=== PATIENT | female | born 2000 | race Native Hawaiian/Other Pacific Islander ===

== ENCOUNTER 2023-10-10 09:18 | Inpatient (IN) | payer SELFPAY ==
[2023-10-10] VITALS (30 sets, daily range): BP systolic 99–129; BP diastolic 55–79
[~2023-10-10] VITALS: Ht 149.9 cm; Wt 69.2 kg
[2023-10-10] MEDS ORDERED: AMPICILLIN (IV) 2,000 MG in NS (IVPB) 50 ML 50 ML IV SCH (09:29)
[2023-10-10] MEDS ORDERED: LACTATED RINGERS 1,000 ML 500 ML IV PRN (09:30)
[2023-10-10] MEDS ORDERED: D5 LR 1,000 ML IV SOLN 1,000 ML IV SCH (09:30)
[2023-10-10] MEDS ORDERED: MINERAL OIL 30 ML UDC TOP PRN (09:30)
[2023-10-10] MEDS ORDERED: LIDOCAINE 2% w/EPI 1:200,000 20 ML VIAL INJ PRN (09:30)
[2023-10-10 10:11] LABS: BASOPHILS # (AUTO) 0.1 10^3/uL (0.0-0.1); BASOPHILS % (AUTO) 1 % (0-10); EOSINOPHILS # (AUTO) 0.9 10^3/uL (0.0-0.3); EOSINOPHILS % (AUTO) 7 % (0-10); HEMATOCRIT 31 % (35-52); HEMOGLOBIN 9.2 g/dL (11.5-16.0); LYMPHOCYTES # (AUTO) 3.2 10^3/uL (1.0-4.0); LYMPHOCYTES % (AUTO) 25 % (12-44); MEAN CORPUSCULAR HEMOGLOBIN 22 pg (25-34); MEAN CORPUSCULAR HGB CONC 30 g/dL (32-36); MEAN CORPUSCULAR VOLUME 74 fL (80-99); MEAN PLATELET VOLUME 9.9 fL (9.0-12.2); MONOCYTES # (AUTO) 0.8 10^3/uL (0.0-1.0); MONOCYTES % (AUTO) 6 % (0-12); NEUTROPHILS # (AUTO) 7.8 10^3/uL (1.8-7.8); NEUTROPHILS % (AUTO) 61 % (42-75); PLATELET COUNT 353 10^3/uL (130-400); WHITE BLOOD COUNT 12.8 10^3/uL (4.3-11.0)
[2023-10-10] MEDS ORDERED: MV-M1TAB66 PO (10:15)
[2023-10-10] MEDS: OXYTOCIN DRIP PRE-MIX 500 ML IV SCH ×2 (11:15→17:06)
[2023-10-10] MEDS ORDERED: AMPICILLIN (IV) 1,000 MG in NS (IVPB) 50 ML 50 ML IV SCH (13:30)
[2023-10-10] MEDS ORDERED: CATHETER FLUSH 10 ML SYR IV SCH ×2 (14:00→22:00)
--- NOTE | 2023-10-10 14:09 | History & Physical-OB ---
OB - Chief Complaint & HPI Date/Time Date of Admission: Date of Admission: Oct 10, 2023 at 09:18 Date seen by a Provider: Oct 10, 2023 Time Seen by a Provider: 13:45 Chief Complaint/History OB-Reason for Admission/Chief: Induction of Labor Hx : 3 Hx Para: 2 Expected Date of Delivery: Oct 07, 2023 Gestational Age in Weeks: 40 Gestational Age in Days: 3 Other reason for admission: Elective IOL History of Labs A+, Ab neg, Rub Imm HIV/RPR/HepB/C NR Normal 1 hr GTT GBS + Allergies and Home Medications Allergies Coded Allergies: No Known Drug Allergies (Unverified , 10/10/23) Patient Home Medication List Home Medication List Reviewed: Yes Mv-Mn/Iron/FA/Herbal/Digestive ( One Tablet) 27 Mg Iron-360 Mcg-125 Mg- 32 Mg Tablet, 1 EACH PO DAILY, (Reported) Entered as Reported by: MARIA ELENA COLLINS on 10/10/23 1015 Last Action: New Order OB - History Hx of Present Care: Yes Ultrasounds: Normal mid trimester US Obstetrical Complications: None Medical Complications: None Obstetrical History Hx : 3 Hx Para: 2 Hx # Term Pregnancies: 2 Number of Living Children: 2 Patient Past Medical History N/A Social History/Family History Alcohol Use: Denies Use Recreational Drug Use: No Smoking Cessation: Never smoker Immunizations Influenza Vaccine Up-to-Date: No; Not Current Tetanus Booster (TDap): Less than 5yrs Rubella: immune RPR/VDRL: Negative GBS Status: Positive HBsAG: Negative OB - Admission Exam Physical Exam Vitals: Vital Signs 10/10/23 10/10/23 10/10/23 10:17 13:18 13:47 Temp 37.1 Pulse 77 Resp 18 B/P (MAP) 99/57 (71) Pulse Ox 99 O2 Delivery Room Air HEENT: NCAT Heart: Rhythm Normal Lungs: Clear Abdomen: Gravid Cervical Dilatation: 5cm Effacement: 75% Station: -1 Membranes: Intact Heart Rate: 140's Accelerations: Accelerations Present Decelerations: No Decelerations Short Term Variability: Present Mcc Variability: Average (6-25) Contractions on Admission: < 5 Minutes Apart Intensity: Moderate Myers Scoring Tool (Modified) Dilation (cm): 3-4cm (2) Effacement (%): 51-79% (2) Descent/Station: -1,0 (2) Cervix Consistency: Medium(1) Add 1 point for: Each previous vaginal delivery (1) Myers Score: 9 Labs Laboratory Tests Test 10/10/23 09:46 Range/Units White Blood Count 12.8 H 4.3-11.0 10^3/uL Red Blood Count 4.16 3.80-5.11 10^6/uL Hemoglobin 9.2 L 11.5-16.0 g/dL Hematocrit 31 L 35-52 % Mean Corpuscular Volume 74 L 80-99 fL Mean Corpuscular Hemoglobin 22 L 25-34 pg Mean Corpuscular Hemoglobin Concent 30 L 32-36 g/dL Red Cell Distribution Width 15.5 H 10.0-14.5 % Platelet Count 353 130-400 10^3/uL Mean Platelet Volume 9.9 9.0-12.2 fL Immature Granulocyte % (Auto) 1 % Neutrophils (%) (Auto) 61 42-75 % Lymphocytes (%) (Auto) 25 12-44 % Monocytes (%) (Auto) 6 0-12 % Eosinophils (%) (Auto) 7 0-10 % Basophils (%) (Auto) 1 0-10 % Neutrophils # (Auto) 7.8 1.8-7.8 10^3/uL Lymphocytes # (Auto) 3.2 1.0-4.0 10^3/uL Monocytes # (Auto) 0.8 0.0-1.0 10^3/uL Eosinophils # (Auto) 0.9 H 0.0-0.3 10^3/uL Basophils # (Auto) 0.1 0.0-0.1 10^3/uL Immature Granulocyte # (Auto) 0.1 0.0-0.1 10^3/uL Syphilis Total Antibody Negative Negative OB - Assessment/Plan/Diagnosis Assessment Assessment: group B positive strep, induction of labor Admission Dx Third Trimester 40 weeks gestation GBS + Admission Status: Inpatient Order (span 2 midnights) Reason for Inpatient Admission: Labor and post care Plan Other Plan 22 yo @ 40.3 wga here for elective IOL Plan - GBS pos: Started ampicillin prior to IOL - Pitocin Protocol after 2 hrs of antibiotics - Expectant management ESDRAS LAMBERT MD Oct 10, 2023 14:09
[2023-10-10 14:52] LABS: BILIRUBIN,URINE NEGATIVE (NEGATIVE); CLARITY,URINE SL CLOUDY; COLOR,URINE YELLOW; GLUCOSE, URINE (UA) NEGATIVE (NEGATIVE); KETONES,URINE NEGATIVE (NEGATIVE); LEUKOCYTE ESTERASE ,URINE 3+ (NEGATIVE); NITRITE,URINE NEGATIVE (NEGATIVE); PROTEIN,URINE NEGATIVE (NEGATIVE); RBC,URINE 0-2 /HPF
[2023-10-10 14:53] LABS: BACTERIA,URINE MODERATE /HPF
--- NOTE | 2023-10-10 17:04 | OB Labor & Delivery Record ---
Vag Delivery Note Vag Delivery Note Date of Delivery: 10/10/23 Preoperative Diagnosis: Joanna Soler is a (22 /Para 3 / 2,Gestational Age (wks)40.3 wga here for elective IOL Postoperative Diagnosis: Same Attending Surgeon/Physician: Esdras Lino MD Diamond Powder Mixer: None Anesthesia: Natural Delivery Type: @ 7336 Findings: Viable male , apgars 7/9, weight 7#8 Lacerations: 2nd degree laceration Intact placenta with 3 vessel cord. No nuchal cord, body cord or shoulder dystocia Estimated Blood Loss: 125 ml Complications: None Condition: Stable Description of Procedure: The patient is a 22 year old female who presented for elective IOL at term. She was admitted and informed consent was obtained. Her labor course was remarkable for pitocin augmentation. She progressed to complete dilatation and began to push. She was then set up for delivery. The infant's head was delivered atraumatically in the TONEY position. The shoulders and remainder of the 's body were then delivered without difficulty. Upon delivery, the infant was vigorous and placed on maternal chest and the mouth and nares were bulb suctioned. After a 2 min delay cord was doubly clamped and cut by FOB and the infant remained on maternal chest. An intact placenta with 3-vessel cord delivered via [place] and there was found to be minimal bleeding.~ Vigorous fundal massage was performed and the fundus was found to be firm. IV oxytocin was given. Examination of the vagina and perineum revealed a 2nd degree perineal laceration repaired in the usual fashion with 3-0 vicryl rapide suture. Following the repair, sponge, instrument and needle counts were correct. Mom and baby were both in stable condition in the labor suite. Vitals - Labs Vital Signs - I&O Vital Signs Date Time Temp Pulse Resp B/P (MAP) Pulse Ox O2 Delivery O2 Flow Rate FiO2 10/10/23 15:17 37.1 92 18 124/72 (89) Room Air 10/10/23 15:03 86 18 121/71 (88) Room Air 10/10/23 14:48 86 18 113/69 (84) Room Air 10/10/23 14:33 94 18 112/70 (84) Room Air 10/10/23 14:19 73 18 107/62 (77) Room Air 10/10/23 14:10 37.4 10/10/23 14:02 72 18 106/60 (75) Room Air 10/10/23 13:47 77 18 99/57 (71) Room Air 10/10/23 13:33 74 18 102/55 (71) Room Air 10/10/23 13:18 37.1 93 18 117/74 (88) Room Air 10/10/23 13:04 73 18 113/68 (83) Room Air 10/10/23 12:49 77 18 119/72 (88) Room Air 10/10/23 12:33 83 18 121/72 (88) Room Air 10/10/23 12:18 78 18 114/67 (83) Room Air 10/10/23 12:03 37.3 101 18 113/69 (84) Room Air 10/10/23 11:48 76 18 109/64 (79) Room Air 10/10/23 11:34 78 18 107/55 (72) Room Air 10/10/23 11:18 74 18 111/63 (79) Room Air 10/10/23 10:17 37.1 107 18 99 Room Air Labs Laboratory Tests 10/10/23 09:35: Urine Color YELLOW, Urine Clarity SL CLOUDY, Urine pH 6.0, Urine Specific [place] 1.010L, Urine Protein NEGATIVE, Urine Glucose (UA) NEGATIVE, Urine Ketones NEGATIVE, Urine Nitrite NEGATIVE, Urine Bilirubin NEGATIVE, Urine Urobilinogen 0.2, Urine Leukocyte Esterase 3+H, Urine RBC (Auto) TRACEH, Urine RBC 0-2, Urine WBC 10-25H, Urine Squamous Epithelial Cells 5-10, Urine Crystals NONE, Urine Bacteria MODERATEH, Urine Casts NONE, Urine Mucus NEGATIVE, Urine Culture Indicated YES 10/10/23 09:46: White Blood Count 12.8H, Red Blood Count 4.16, Hemoglobin 9.2L, Hematocrit 31L, Mean Corpuscular Volume 74L, Mean Corpuscular Hemoglobin 22L, Mean Corpuscular Hemoglobin Concent 30L, Red Cell Distribution Width 15.5H, Platelet Count 353, Mean Platelet Volume 9.9, Immature Granulocyte % (Auto) 1, Neutrophils (%) (Auto) 61, Lymphocytes (%) (Auto) 25, Monocytes (%) (Auto) 6, Eosinophils (%) (Auto) 7, Basophils (%) (Auto) 1, Neutrophils # (Auto) 7.8, Lymphocytes # (Auto) 3.2, Monocytes # (Auto) 0.8, Eosinophils # (Auto) 0.9H, Basophils # (Auto) 0.1, Immature Granulocyte # (Auto) 0.1, Syphilis Total Antibody Negative ESDRAS LINO MD Oct 10, 2023 17:04
[2023-10-10] MEDS ORDERED: BENZOCAINE/MENTHOL (DERMOPLAST) 56 ML CAN TP PRN (17:15)
[2023-10-10] MEDS ORDERED: WITCH HAZEL(TUCKS) 40 EA JAR TOP PRN (17:15)
[2023-10-10] MEDS ORDERED: OXYTOCIN DRIP PRE-MIX 500 ML IV SCH (17:15)
[2023-10-10] MEDS: ACETAMINOPHEN 500 MG TABLET PO SCH (18:27)
[2023-10-10] MEDS: IBUPROFEN 600 MG TABLET PO SCH (18:27)
[2023-10-10] MEDS: DOCUSATE SODIUM 100 MG CAPSULE PO SCH (21:12)
[2023-10-11] MEDS: ACETAMINOPHEN 500 MG TABLET PO SCH ×3 (00:36→11:18)
[2023-10-11] MEDS: IBUPROFEN 600 MG TABLET PO SCH ×3 (00:36→13:55)
[2023-10-11 02:41] VITALS: BP 104/63
[2023-10-11 05:45] LABS: BASOPHILS # (AUTO) 0.1 10^3/uL (0.0-0.1); BASOPHILS % (AUTO) 0 % (0-10); EOSINOPHILS # (AUTO) 0.5 10^3/uL (0.0-0.3); EOSINOPHILS % (AUTO) 3 % (0-10); HEMATOCRIT 28 % (35-52); HEMOGLOBIN 8.4 g/dL (11.5-16.0); LYMPHOCYTES # (AUTO) 3.3 10^3/uL (1.0-4.0); LYMPHOCYTES % (AUTO) 21 % (12-44); MEAN CORPUSCULAR HEMOGLOBIN 22 pg (25-34); MEAN CORPUSCULAR HGB CONC 30 g/dL (32-36); MEAN CORPUSCULAR VOLUME 74 fL (80-99); MONOCYTES # (AUTO) 0.8 10^3/uL (0.0-1.0); MONOCYTES % (AUTO) 5 % (0-12); NEUTROPHILS # (AUTO) 11.3 10^3/uL (1.8-7.8); NEUTROPHILS % (AUTO) 70 % (42-75); PLATELET COUNT 298 10^3/uL (130-400)
[2023-10-11 06:08] VITALS: BP 121/60
[2023-10-11 08:00] VITALS: BP 92/52
[2023-10-11] MEDS: DOCUSATE SODIUM 100 MG CAPSULE PO SCH (08:27)
[2023-10-11] MEDS ORDERED: FERROUS SULFATE 325 MG (IRON) TABLET PO SCH (09:00)
[2023-10-11] MEDS ORDERED: FERR325T24 PO (10:25)
--- NOTE | 2023-10-11 10:26 | Discharge Inst-Women's Service ---
Discharge Inst-Women's Serv Depart Medication/Instructions New, Converted or Re-Newed RX: Transmitted to Pharmacy ([facility]) Problems Reviewed?: Yes Consults/Follow Up Additional Follow Up: Yes (Dr. Lino in 6 weeks) Activity Driving Instructions: No Driving for 1 Week Diet Discharge Diet: Regular Diet Return to The Hospital For: As below Symptoms to Report to : Bleeding Excessive, Fever Over 101 Degrees F, Vaginal Discharge Foul For Any Problems or Questions: Contact Your Physician WIN MARTIN MD Oct 11, 2023 10:26
--- NOTE | 2023-10-11 10:29 | Discharge Summary ---
Diagnosis/Chief Complaint Date of Admission Oct 10, 2023 at 09:18 Date of Discharge October 11, 2023 Admission Diagnosis Admission Diagnosis 1. Intrauterine at term 40 weeks 2. Anemia iron deficiency Discharge Diagnosis 1. Intrauterine at term 40 weeks 2. Anemia iron deficiency Chief Complaint/HPI Chief Complaint/HPI 22-year-old 3 now term 3 who initially presented for induction of labor during the morning of October 10, 2023. Her GBS status was noted to be neg ative. Her care was essentially unremarkable through [facility]. Discharge Summary-OBS Procedures 1. Spontaneous vaginal deliveryDr. Lino 2. Repair of second-degree perineal laceration Discharge Physical Examination Allergies: Coded Allergies: No Known Drug Allergies (Unverified , 10/10/23) Vitals & I&Os Intake and Output 10/10/23 23:59 Intake Total 1550 ml Balance 1550 ml Vital Sign - Last 12Hours Date Time Temp Pulse Resp B/P (MAP) Pulse Ox O2 Delivery O2 Flow Rate FiO2 10/11/23 06:08 36.3 77 18 121/60 (80) 99 Room Air General Appearance: Oriented X3 Respiratory: Clear to Auscultation Cardiovascular: Regular Rate Abdominal: Soft (With uterus firm) Hospital Course Was the Problem List Reviewed?: Yes following admission she underwent induction of labor with Pitocin. Ultimately she went on to deliver a term viable male at 1630 on October 10, 2023. Infant received Apgars of 7 at 1 minute and 9 at 5 minutes. Infant weight was 7 lbs. 8 oz. There was a second-degree perineal laceration which was repaired by Following delivery patient underwent routine care orders. There was no complications during the remainder of hospital stay. In the morning of October 11 her hemoglobin was 8.4 compared to admission of 9.2. She was without any lightheadedness or orthostatic changes. She had tolerated a regular diet and was felt ready for dismissal after 24 hour stay and this would place her in the early evening of October 11, 2023. She will follow up with Dr. Lino in 6 weeks. Labs Laboratory Tests 10/11/23 05:07: White Blood Count 16.0H, Red Blood Count 3.83, Hemoglobin 8.4L, Hematocrit 28L, Mean Corpuscular Volume 74L, Mean Corpuscular Hemoglobin 22L, Mean Corpuscular Hemoglobin Concent 30L, Red Cell Distribution Width 15.6H, Platelet Count 298, Mean Platelet Volume 10.0, Immature Granulocyte % (Auto) 1, Neutrophils (%) (Auto) 70, Lymphocytes (%) (Auto) 21, Monocytes (%) (Auto) 5, Eosinophils (%) (Auto) 3, Basophils (%) (Auto) 0, Neutrophils # (Auto) 11.3H, Lymphocytes # (Auto) 3.3, Monocytes # (Auto) 0.8, Eosinophils # (Auto) 0.5H, Basophils # (Auto) 0.1, Immature Granulocyte # (Auto) 0.1 Discharge Instructions to patient/family Please see electronic discharge instructions given to patient. Discharge Medications Reviewed and agree with Discharge Medication list on patient's Discharge Instruction sheet WIN MARTIN MD Oct 11, 2023 10:29
[2023-10-11 16:00] VITALS: BP 111/67
== END 2023-10-11 17:36 | disposition home or self-care (01) | DRG 807 ==
LOC: LDRP 09:18
PROVIDERS: ADMIT Family Medicine; ATTEND Family Medicine
PROC: 10E0XZZ Delivery of Products of Conception, External Approach (ICD-10-PCS; principal; 2023-10-10)
PROC: 0KQM0ZZ Repair Perineum Muscle, Open Approach (ICD-10-PCS; 2023-10-10)
PROC: 3E033VJ Introduction of Other Hormone into Peripheral Vein, Percutaneous Approach (ICD-10-PCS; 2023-10-10)
DX: O48.0 Post-term pregnancy (principal); Z37.0 Single live birth; O99.824 Streptococcus B carrier state complicating childbirth; Z3A.40 40 weeks gestation of pregnancy; O70.1 Second degree perineal laceration during delivery; O90.81 Anemia of the puerperium; D50.9 Iron deficiency anemia, unspecified
CPT/HCPCS: 36415; 81000; 85025; 86780; 86850; 86900; 86901; 87088